=== PATIENT | female | born 1940 | race Caucasian/White ===

== ENCOUNTER → 2017-02-14 | Outpatient (CLI) | payer MEDICARE ==
[~2017-02-14] MED LIST: FLEXERIL 1010 MG/TAB PO; NORCO 325 MG-51 TAB PO; PERCOCET 325 MG1 TA2 PO; PREDNISONE20 MG PO; PREMARIN 0.60.625 M1 PO
== END ==
LOC: MC.RAD 11:00
DX: Z12.31 Encounter for screening mammogram for malignant neoplasm of breast (principal); D24.2 Benign neoplasm of left breast; D24.1 Benign neoplasm of right breast

== ENCOUNTER 2017-03-24 10:45 | Outpatient (RCR) | payer MEDICARE | END 2017-03-27 | disposition home or self-care (01) | LOC: WSPT | DX: M54.42 Lumbago with sciatica, left side (principal); M54.41 Lumbago with sciatica, right side | CPT/HCPCS: G8978-GP; G8979-GP ==

== ENCOUNTER → 2018-03-14 | Outpatient (CLI) | payer MEDICARE | LOC: MC.RAD 08:54 | DX: Z12.31 Encounter for screening mammogram for malignant neoplasm of breast (principal) ==

== ENCOUNTER 2018-03-30 09:45 | Outpatient (RCR) | payer MEDICARE | END 2018-04-02 | disposition home or self-care (01) | LOC: WSPT | DX: M25.511 Pain in right shoulder (principal); M54.42 Lumbago with sciatica, left side; M54.41 Lumbago with sciatica, right side; G89.29 Other chronic pain | CPT/HCPCS: G8978-GP; G8979-GP ==

== ENCOUNTER 2018-04-13 09:00 | Outpatient (RCR) | payer MEDICARE | END 2018-04-13 12:59 | disposition home or self-care (01) | LOC: WSPT 09:00 | DX: M25.511 Pain in right shoulder (principal); M54.41 Lumbago with sciatica, right side; M54.42 Lumbago with sciatica, left side; G89.29 Other chronic pain | CPT/HCPCS: G8978-GP; G8979-GP; G8980-GP ==

== ENCOUNTER → 2019-05-03 | Outpatient (CLI) | payer MEDICARE | LOC: MC.RAD 09:26 | DX: Z12.31 Encounter for screening mammogram for malignant neoplasm of breast (principal) ==

== ENCOUNTER 2019-08-30 10:15 | Outpatient (RCR) | payer MEDICARE | END 2019-09-03 | disposition still patient (30) | LOC: WSPT | DX: M54.40 Lumbago with sciatica, unspecified side (principal) ==

== ENCOUNTER 2019-09-20 10:30 | Outpatient (RCR) | payer MEDICARE | END 2019-10-01 08:36 | disposition home or self-care (01) | LOC: WSPT 10:30 | DX: M54.40 Lumbago with sciatica, unspecified side (principal); G89.29 Other chronic pain ==

== ENCOUNTER 2020-02-07 11:00 | Outpatient (RCR) | payer MEDICARE | END 2020-04-13 | disposition home or self-care (01) | LOC: WSPT | DX: G20 Parkinson's disease (principal) ==

== ENCOUNTER → 2020-05-15 | Outpatient (CLI) | payer MEDICARE | LOC: MC.RAD 10:53 | DX: Z12.31 Encounter for screening mammogram for malignant neoplasm of breast (principal) ==

== ENCOUNTER 2020-10-02 09:15 | Outpatient (RCR) | payer MEDICARE | END 2020-10-10 08:20 | disposition home or self-care (01) | LOC: WSPT 09:15 | DX: G20 Parkinson's disease (principal); M54.40 Lumbago with sciatica, unspecified side ==

== ENCOUNTER → 2021-06-05 | Outpatient (CLI) | payer MEDICARE ==
[~2021-06-05] MED LIST changes: +CEPHALEXIN500 M1 PO; +SINEMET 25/101 UDTAB PO
== END ==
LOC: MC.RAD 09:57
DX: R92.8 Other abnormal and inconclusive findings on diagnostic imaging of breast (principal)

== ENCOUNTER 2021-06-11 13:15 | Emergency (ER) | payer MEDICARE ==
[~2021-06-11] VITALS: Ht 154.9 cm; Wt 53.6 kg
[~2021-06-11 13:15] MED LIST changes: -CEPHALEXIN500 M1 PO; -SINEMET 25/101 UDTAB PO
[2021-06-11 14:19] LABS: BASO # 0.1 (0.0-0.2); BASO % 1.1 % (0.0-2.0); EOS # 0.1 (0.0-0.7); GRAN # 5.4 (1.4-6.5); GRAN % 75.3 % (42.2-75.2); HEMOGLOBIN 11.8 g/dl (12.5-16.0); LYMPH % 14.5 % (20.0-51.0); MEAN CELL VOLUME 95 fl (80.0-100.0); MEAN CORPUSCULAR HEMOGLOBIN 31 pg (27.0-31.0); MEAN CORPUSCULAR HGB CONC 32 g/dl (33.0-37.0); MEAN PLATELET VOLUME 9.9 fl (7.4-10.4); MONO # 0.6 (0.1-0.6); MONO % 7.7 % (1.7-9.3); PLATELET COUNT 295 K/mm3 (130-400); RED BLOOD COUNT 3.87 M/mm3 (4.10-5.30); REDCELL DISTRIBUTION WIDTH-CV 12.7 % (11.5-14.5)
[2021-06-11 14:21] LABS: HEMATOCRIT 36.7 % (37.0-47.0)
[2021-06-11 14:32] LABS: ALBUMIN 3.9 gm/dL (3.5-5.0); ALKALINE PHOSPHATASE 53 U/L (50-136); ANION GAP 5 mmol/L (7-16); AST,SGOT 23 U/L (15-37); BILIRUBIN,TOTAL 0.3 mg/dL (0.0-1.0); BLOOD UREA NITROGEN 21 mg/dL (7-17); CALCIUM 9.2 mg/dL (8.4-10.2); CARBON DIOXIDE 23 mmol/L (22-30); CHLORIDE 108 mmol/L (98-107); CREATININE, serum 0.78 (0.52-1.25); GLUCOSE 131 mg/dL (74-106); LIPASE 118 U/L (23-300); POTASSIUM 4.3 mmol/L (3.4-5.0); SODIUM 135 mmol/L (137-145); TOTAL PROTEIN 7.1 gm/dL (6.4-8.2)
[2021-06-11 14:37] LABS: ALANINE AMINOTRANSFERASE < 4 U/L (4-34)
[2021-06-11 15:10] LABS: TROPONIN-I < 0.012 ng/mL (0.000-0.035)
[2021-06-11 16:41] LABS: COLLECTION METHOD CLEAN CATCH
[2021-06-11] MEDS ORDERED: SINEMET 25/101 UDTAB PO (16:45)
[2021-06-11 17:12] LABS: PH 5 (5-8); SQUAMOUS EPITHELIAL None Seen /hpf; URINE APPEARANCE Hazy; URINE BACTERIA Rare /hpf; URINE BILIRUBIN Negative (NEGATIVE); URINE BLOOD 1+ (NEGATIVE); URINE COLOR Yellow; URINE GLUCOSE Negative (NEGATIVE); URINE KETONE Negative (NEGATIVE); URINE LEUKOCYTE ESTERASE 1+ (NEGATIVE); URINE NITRATE Positive (NEGATIVE); URINE PROTEIN(semi-quant) Negative (NEGATIVE); URINE RBC 0-2 /hpf; URINE UROBILINOGEN Negative (NEGATIVE)
[2021-06-11] MEDS ORDERED: CEPHALEXIN500 M1 PO (19:06)
[2021-06-11 20:18] VITALS: BP 184/68; PULSE 88; TEMP 97.6
== END 2021-06-11 20:20 | disposition home or self-care (01) ==
LOC: COL.ER 13:15
PROVIDERS: Emergency Medicine
DX: N39.0 Urinary tract infection, site not specified (principal); R79.0 Abnormal level of blood mineral; G20 Parkinson's disease; M54.9 Dorsalgia, unspecified; G89.29 Other chronic pain; Z20.822 Contact with and (suspected) exposure to COVID-19; Z79.891 Long term (current) use of opiate analgesic; Z79.899 Other long term (current) drug therapy
CPT/HCPCS: J7120; Q9967

== ENCOUNTER 2021-06-18 10:00 | Outpatient (RCR) | payer MEDICARE ==
[~2021-06-18 10:00] MED LIST changes: +CEPHALEXIN500 M1 PO; +SINEMET 25/101 UDTAB PO
== END 2021-06-21 | disposition home or self-care (01) ==
LOC: PT.GENESIS
DX: G20 Parkinson's disease (principal); M54.40 Lumbago with sciatica, unspecified side

== ENCOUNTER → 2021-10-19 | Outpatient (CLI) | payer MEDICARE | LOC: COL.CARD 08-26 13:00 | DX: Z01.810 Encounter for preprocedural cardiovascular examination (principal); R55 Syncope and collapse ==

== ENCOUNTER → 2021-11-03 | Outpatient (CLI) | payer MEDICARE | LOC: COL.CARD 09:52 | DX: R55 Syncope and collapse (principal) ==

== ENCOUNTER 2022-09-14 10:30 | Outpatient (RCR) | payer MEDICARE | END 2022-09-20 | disposition home or self-care (01) | LOC: PT.GENESIS | DX: G20 Parkinson's disease (principal) ==

== ENCOUNTER 2023-02-17 11:30 | Outpatient (RCR) | payer MEDICARE | END 2023-02-18 | disposition home or self-care (01) | LOC: PT.GENESIS | DX: G20 Parkinson's disease (principal) ==

== ENCOUNTER 2023-03-17 11:30 | Outpatient (RCR) | payer MEDICARE | END 2023-03-20 | disposition home or self-care (01) | LOC: PT.GENESIS | DX: G20 Parkinson's disease (principal) ==

== ENCOUNTER 2023-12-10 13:02 | Emergency (ER) | payer MEDICARE ==
[~2023-12-10] VITALS: Ht 160 cm; Wt 44.5 kg
[2023-12-10 13:05] VITALS: TEMP 98
[2023-12-10] MEDS ORDERED: NS 1,000 ML IV SCH (13:15)
[2023-12-10 13:59] LABS: BASO # 0.1 K/mm3 (0.0-0.2); BASO % 1.1 % (0.0-2.0); EOS # 0.1 K/mm3 (0.0-0.7); EOS % 1.7 % (0.0-4.0); GRAN # 4.6 K/mm3 (1.4-6.5); GRAN % 71.1 % (42.2-75.2); HEMOGLOBIN 11.7 g/dl (12.5-16.0); LYMPH # 0.9 K/mm3 (1.2-3.4); LYMPH % 14.6 % (20.0-51.0); MEAN CELL VOLUME 92 fl (80.0-100.0); MEAN CORPUSCULAR HEMOGLOBIN 31 pg (27-31); MEAN CORPUSCULAR HGB CONC 34 g/dl (33.0-37.0); MEAN PLATELET VOLUME 9.3 fl (7.4-10.4); MONO # 0.7 K/mm3 (0.1-0.6); PLATELET COUNT 327 K/mm3 (130-400); RED BLOOD COUNT 3.79 M/mm3 (4.10-5.30); REDCELL DISTRIBUTION WIDTH-CV 12.7 % (11.5-14.5)
[2023-12-10 14:00] LABS: HEMATOCRIT 34.8 % (37.0-47.0)
[2023-12-10 14:13] LABS: ALBUMIN 4.1 gm/dL (3.4-4.8); ALKALINE PHOSPHATASE 57 U/L (40-150); ANION GAP 11 mmol/L (7-16); AST,SGOT 21 U/L (5-34); BILIRUBIN,TOTAL 0.4 mg/dL (0.2-1.2); BLOOD UREA NITROGEN 23 mg/dL (10-20); CALCIUM 9.5 mg/dL (8.4-10.2); CARBON DIOXIDE 26 mmol/L (23-31); CHLORIDE 100 mmol/L (98-107); GLUCOSE 90 mg/dL (70-99); POTASSIUM 3.9 mmol/L (3.5-4.5); SODIUM 137 mmol/L (136-145); TOTAL PROTEIN 7.3 gm/dL (6.2-8.1)
[2023-12-10 14:16] LABS: ALANINE AMINOTRANSFERASE < 6 U/L (0-55)
[2023-12-10 14:25] VITALS: BP 166/104
[2023-12-10 14:37] VITALS: PULSE 78
[2023-12-10 14:47] LABS: URINE APPEARANCE Cloudy (CLEAR/HAZY); URINE BLOOD Negative (NEGATIVE); URINE COLOR Yellow (YELLOW); URINE GLUCOSE Negative (NEGATIVE); URINE KETONE Negative (NEGATIVE); URINE NITRATE Negative (NEGATIVE); URINE PROTEIN(semi-quant) TRACE (NEGATIVE); URINE UROBILINOGEN 0.2 E.U/dL (0.2-1.0)
[2023-12-10 14:48] LABS: SQUAMOUS EPITHELIAL 0-2 /hpf (0-10); URINE BACTERIA Many /hpf (NONE SEEN); URINE RBC None Seen /hpf (0-2)
[2023-12-10 15:05] LABS: COLLECTION METHOD CATHETER
== END 2023-12-10 14:37 | disposition home or self-care (01) ==
LOC: COL.ER 13:02
PROVIDERS: Family Medicine
DX: G20.A1 Parkinson's disease without dyskinesia, without mention of fluctuations (principal); R55 Syncope and collapse; Z79.899 Other long term (current) drug therapy
CPT/HCPCS: J7030

== ENCOUNTER → 2024-01-24 | Outpatient (CLI) | payer MEDICARE ==
[~2024-01-24] MED LIST changes: +CELEBREX 200MG200 MG PO; +CENTRUM SILVER1 TAB PO; +DAILY PROBIOTI250 MG PO; +FLORINEF ACETA0.1 MG PO; +HYDROCORTISONE ACETA PO; +KLONOPIN 0.5MG0.5 MG PO; +MAGNESIUM CITR100 MG PO; +MIRALAX PA17 GM/Dose PO; +MYRBETR25MG PO; +PRESERVISION A1 EAC3 PO; +ROXICODONE 55 MG/TAB PO; +TYLENOL 500MG500 MG PO; +ULTRAM 50MG TAB50 MG PO; +VITAMIN C500 MG PO; +VITAMIN D31000 I1 PO
== END ==
LOC: COL.RAD 16:51
DX: S32.592D Other specified fracture of left pubis, subsequent encounter for fracture with routine healing (principal); X58.XXXD Exposure to other specified factors, subsequent encounter